=== PATIENT | male | born 1975 | race Caucasian/White ===

== ENCOUNTER 2017-09-26 20:47 | Emergency (ER) | payer MEDICAID, OTHER ==
[~2017-09-26] VITALS: Ht 175.3 cm; Wt 81.6 kg
--- NOTE | 2017-09-26 21:26 | NUR ---
PT REFUSING ANY CARE AT ALL.TRYING TO SPIT ON EVERYONE.REFUSES TO SIGN AMA FORM.GHANSHYAM SIGNED ACI- LEAVING AGAINST MED ADVICE.PT TAKEN BY GHANSHYAM TO BOOK
== END 2017-09-26 21:33 | disposition left against medical advice (07) ==
LOC: ER 20:47
DX: Z53.21 Procedure and treatment not carried out due to patient leaving prior to being seen by health care provider (principal)

== ENCOUNTER → 2021-02-08 | Emergency (ER) | payer SELFPAY ==
--- NOTE | 2021-02-08 21:15 | NUR ---
Called for patient in waiting room, patient was not present.
== END | disposition left against medical advice (07) ==
LOC: ER 20:02
DX: Z53.21 Procedure and treatment not carried out due to patient leaving prior to being seen by health care provider (principal)